=== PATIENT | female | born 1980 | race Caucasian/White ===

== ENCOUNTER 2017-09-16 10:09 | Emergency (ER) | payer OTHER ==
[~2017-09-16 10:09] MED LIST: AUGMENTIN 875875 MG PO; BACTROBAN2% T; CIPRO500 MG PO; CIPROFLOXACIN500 MG PO; COLACE100 MG PO; DARVOCET N 1001 TAB PO; FERROUS SULFATE27 MG PO; FLAGYL500 MG PO; IRON325 M1 PO; LABETALOL300 MG PO; LEXAPRO20 MG PO; MOTRIN800 MG PO; NKHM; PERCOCET 325 MG1 TA2 PO; PNV-SELECT1 TAB PO; PREDNISONE20 M1 PO; PREVACID SOLUTA30 MG PO; SEPTRA DS 800 M1 TAB PO; VICODIN 500 MG-1 TAB PO; ZITHROMAX250 MG PO; ZOFRAN4 MG PO
[2017-09-16] MEDS ORDERED: IBUPROFEN600 MG PO (11:35)
== END 2017-09-16 12:36 | disposition home or self-care (01) ==
LOC: ED 10:09
DX: S93.601A Unspecified sprain of right foot, initial encounter (principal); F17.200 Nicotine dependence, unspecified, uncomplicated; X50.1XXA Overexertion from prolonged static or awkward postures, initial encounter; Y93.89 Activity, other specified; Y92.89 Other specified places as the place of occurrence of the external cause; Y99.8 Other external cause status

== ENCOUNTER 2018-02-07 18:59 | Emergency (ER) | payer OTHER ==
[~2018-02-07] VITALS: Ht 160 cm; Wt 90.7 kg
[~2018-02-07 18:59] MED LIST changes: +IBUPROFEN600 MG PO
[2018-02-07] MEDS ORDERED: LISINOPRIL5 MG PO (19:13)
[2018-02-07] MEDS ORDERED: AMOXICILLIN500 M2 PO (20:06)
[2018-02-07] MEDS ORDERED: Motrin,Rufen800 MG PO (20:06)
== END 2018-02-07 20:46 | disposition home or self-care (01) ==
LOC: ED 18:59
DX: K08.89 Other specified disorders of teeth and supporting structures (principal); R03.0 Elevated blood-pressure reading, without diagnosis of hypertension; F17.200 Nicotine dependence, unspecified, uncomplicated; Z98.890 Other specified postprocedural states; Z79.899 Other long term (current) drug therapy

== ENCOUNTER 2018-05-10 19:15 | Inpatient (IN) | payer SELFPAY ==
[~2018-05-10] VITALS: Ht 160 cm; Wt 88.2 kg
[~2018-05-10 19:15] MED LIST changes: +AMOXICILLIN500 M2 PO; +LISINOPRIL5 MG PO; +Motrin,Rufen800 MG PO
[2018-05-10 19:19] VITALS: BP 193/102
[2018-05-10 20:14] LABS: BASO % 0.2 % (0.0-1.0); EOS # 0.2 10*3/uL (0.0-0.4); EOS % 1.7 % (1.0-4.0); HEMATOCRIT 30.7 % (37.0-47.0); HEMOGLOBIN 9.2 g/dl (12.0-16.0); LYMPH # 1.2 10*3/uL (1.3-4.4); LYMPH % 8.8 % (27.0-41.0); MEAN CELL VOLUME 89.8 fl (81.0-99.0); MEAN CORPUSCULAR HGB 26.9 pg (27.0-31.0); MEAN PLATELET VOLUME 11.3 fl (9.6-12.3); MONO # 0.7 10*3/uL (0.1-1.0); MONO % 5.2 % (3.0-9.0); NEUT # 11.3 10*3/uL (2.3-7.9); NEUT % 83.7 % (47.0-73.0); PLATELET COUNT AUTOMATED 197 10*3/uL (130-400); RED BLOOD COUNT 3.42 10*6/uL (4.10-5.10); RED CELL DISTRI WIDTH 19.6 % (0-14.5); WHITE BLOOD COUNT 13.5 10*3/uL (4.8-10.8)
[2018-05-10 20:20] VITALS: BP 159/96
[2018-05-10 20:30] LABS: ALBUMIN 2.3 gm/dl (3.1-4.5); ALKALINE PHOSPHATASE 216 U/L (45-117); BUN 3 mg/dl (7-24); CHLORIDE 100 mmol/L (98-107); CREATININE 0.66 mg/dL (0.55-1.02); POTASSIUM 2.9 mmol/L (3.5-5.1); SGOT/AST 92 IU/L (3-35); SGPT/ALT 15 U/L (12-78); SODIUM 137 mmol/L (136-145); TOTAL PROTEIN 7.1 gm/dL (6.4-8.2)
[2018-05-10 21:05] VITALS: BP 155/94
[2018-05-10 21:21] LABS: BILIRUBIN NEGATIVE (NEGATIVE); BLOOD NEGATIVE (NEGATIVE); CLARITY CLEAR (CLEAR); COLOR YELLOW (YELLOW); GLUCOSE NEGATIVE (NEGATIVE); KETONE NEGATIVE (NEGATIVE); LEUKO ESTERASE TRACE (NEGATIVE); NITRITE NEGATIVE (NEGATIVE); SPECIFIC GRAVITY <= 1.005 (1.005-1.030); UROBILINOGEN 0.2 E.U./dl (0.2-1.0)
[2018-05-10 21:38] LABS: BACTERIA TRACE
[2018-05-10 22:30] VITALS: BP 154/92
[2018-05-10 23:53] VITALS: BP 163/100
[2018-05-11] VITALS (7 sets, daily range): BP systolic 109–176; BP diastolic 63–108
[2018-05-11 06:04] LABS: BASO % 0.3 % (0.0-1.0); EOS # 0.3 10*3/uL (0.0-0.4); EOS % 2.6 % (1.0-4.0); HEMATOCRIT 31.6 % (37.0-47.0); HEMOGLOBIN 9.4 g/dl (12.0-16.0); LYMPH # 1.8 10*3/uL (1.3-4.4); LYMPH % 16.1 % (27.0-41.0); MEAN CELL VOLUME 91.1 fl (81.0-99.0); MEAN CORPUSCULAR HGB 27.1 pg (27.0-31.0); MEAN CORPUSCULAR HGB CONC 29.7 g/dl (33.0-37.0); MEAN PLATELET VOLUME 11.1 fl (9.6-12.3); MONO # 0.7 10*3/uL (0.1-1.0); MONO % 5.8 % (3.0-9.0); NEUT # 8.5 10*3/uL (2.3-7.9); NEUT % 74.8 % (47.0-73.0); PLATELET COUNT AUTOMATED 201 10*3/uL (130-400); RED BLOOD COUNT 3.47 10*6/uL (4.10-5.10); WHITE BLOOD COUNT 11.3 10*3/uL (4.8-10.8)
[2018-05-11 06:33] LABS: INTERNATIONAL NORM RATIO 1.2 (2.0-3.5)
[2018-05-11 06:34] LABS: ALBUMIN 2.5 gm/dl (3.1-4.5); ALKALINE PHOSPHATASE 189 U/L (45-117); BUN 3 mg/dl (7-24); CHLORIDE 104 mmol/L (98-107); CHOLESTEROL 200 mg/dL (<200); CREATININE 0.57 mg/dL (0.55-1.02); HDL CHOLESTEROL 8 mg/dl (40-60); IRON 64 ug/dL (50-170); LDL CHOLESTEROL 119 mg/dL (9-159); LIPASE 175 U/L (73-393); PHOSPHOROUS 1.8 mg/dL (2.5-4.9); POTASSIUM 3.1 mmol/L (3.5-5.1); SGOT/AST 88 IU/L (3-35); SGPT/ALT 15 U/L (12-78); SODIUM 141 mmol/L (136-145); TOTAL IRON BINDING CAPACITY 224 ug/dl (250-450); TRIGLYCERIDES 363 mg/dl (<150); VLDL CHOLESTEROL 73 mg/dL (6-40)
[2018-05-11 06:43] LABS: FREE T4 1.25 ng/dl (0.76-1.46)
[2018-05-11 08:55] LABS: FERRITIN 37.2 ng/mL (10.0-291.0); VITAMIN D, 25-HYDROXY 16.2 ng/mL (30-100)
[2018-05-12] VITALS: BP 141/70
[2018-05-12 06:57] LABS: BASO % 0.4 % (0.0-1.0); EOS # 0.4 10*3/uL (0.0-0.4); EOS % 3.6 % (1.0-4.0); HEMATOCRIT 30.6 % (37.0-47.0); LYMPH # 2.2 10*3/uL (1.3-4.4); LYMPH % 20.2 % (27.0-41.0); MEAN CELL VOLUME 92.2 fl (81.0-99.0); MEAN CORPUSCULAR HGB 27.1 pg (27.0-31.0); MEAN CORPUSCULAR HGB CONC 29.4 g/dl (33.0-37.0); MONO # 0.8 10*3/uL (0.1-1.0); MONO % 6.8 % (3.0-9.0); NEUT # 7.5 10*3/uL (2.3-7.9); NEUT % 68.4 % (47.0-73.0); PLATELET COUNT AUTOMATED 172 10*3/uL (130-400); RED BLOOD COUNT 3.32 10*6/uL (4.10-5.10); RED CELL DISTRI WIDTH 20.4 % (0-14.5)
[2018-05-12 07:08] LABS: ALBUMIN 2.3 gm/dl (3.1-4.5); ALKALINE PHOSPHATASE 169 U/L (45-117); BUN 4 mg/dl (7-24); CHLORIDE 104 mmol/L (98-107); CREATININE 0.44 mg/dL (0.55-1.02); POTASSIUM 3.6 mmol/L (3.5-5.1); SGOT/AST 119 IU/L (3-35); SGPT/ALT 17 U/L (12-78); SODIUM 137 mmol/L (136-145); TOTAL PROTEIN 6.6 gm/dL (6.4-8.2)
[2018-05-12 08:00] VITALS: BP 138/76
[2018-05-12 12:00] VITALS: BP 152/81
[2018-05-12 16:00] VITALS: BP 170/85
[2018-05-12 20:00] VITALS: BP 177/86
[2018-05-13] VITALS: BP 161/79
[2018-05-13 05:48] VITALS: BP 149/73
[2018-05-13 08:00] VITALS: BP 153/93
[2018-05-13 12:00] VITALS: BP 167/84
[2018-05-13] MEDS ORDERED: VITAMIN D-32000 UNIT PO (12:48)
[2018-05-13] MEDS ORDERED: NATURE'S BLEND F1 MG PO (12:48)
[2018-05-13] MEDS ORDERED: RESTORIL15 MG PO (12:48)
[2018-05-13] MEDS ORDERED: Sinemet 10-100MG PO (12:48)
[2018-05-13] MEDS ORDERED: LISINOPRIL5 MG PO (13:00)
[2018-05-13] MEDS ORDERED: FEOSOL325 MG PO ×2 (13:07)
== END 2018-05-13 14:20 | disposition home or self-care (01) | DRG 304 ==
LOC: ED 19:15 → EDHOLD 05-11 00:11 → 4E 05-11 00:53
PROVIDERS: Emergency Medicine; Internal Medicine
DX: I16.0 Hypertensive urgency (principal); E43 Unspecified severe protein-calorie malnutrition; E87.2 Acidosis; E83.42 Hypomagnesemia; R65.10 Systemic inflammatory response syndrome (SIRS) of non-infectious origin without acute organ dysfunction; E83.39 Other disorders of phosphorus metabolism; K92.1 Melena; E87.6 Hypokalemia; E66.09 Other obesity due to excess calories; R00.0 Tachycardia, unspecified; D50.9 Iron deficiency anemia, unspecified; D72.829 Elevated white blood cell count, unspecified; R74.0 Nonspecific elevation of levels of transaminase and lactic acid dehydrogenase [LDH]; R79.82 Elevated C-reactive protein (CRP); F10.10 Alcohol abuse, uncomplicated; I10 Essential (primary) hypertension; F17.210 Nicotine dependence, cigarettes, uncomplicated; E55.9 Vitamin D deficiency, unspecified; E53.8 Deficiency of other specified B group vitamins; G47.00 Insomnia, unspecified; Z68.34 Body mass index [BMI] 34.0-34.9, adult; Z98.891 History of uterine scar from previous surgery; Z71.6 Tobacco abuse counseling

== ENCOUNTER 2018-12-01 09:36 | Inpatient (IN) | payer SELFPAY ==
[~2018-12-01] VITALS: Ht 160 cm; Wt 80.7 kg
[2018-12-01] VITALS (9 sets, daily range): BP systolic 160–200; BP diastolic 90–121
--- NOTE | ~2018-12-01 | EKG ---
[place], [place] ELECTROCARDIOGRAM REPORT NAME: VITALIY VILLALTA UNIT #: [id number] ROOM: 404 DOCTOR: ESTELLE DRAFT REPORT BIRTHDATE: [birth year] [facility] Test Date: 2018-12-01 Test Time: 10:00:22 Pat Name: VITALIY VILLALTA Department: Room: 404 Gender: F Social Worker: Myriam Ford : 1980 Requested By: ELOY DOUGLASS DNP Order Number: [id number] Reading MD: Sal Contreras MD Measurements Intervals [place] Rate: 103 P: 52 RI: 177 QRS: -9 QRSD: 90 T: 30 QT: 357 QTc: 468 Interpretive Statements Sinus tachycardia Compared to ECG 06/26/2018 12:01:22 Atrial abnormality now present Electronically Signed On 12-02-2018 21:17:56 PST by Sal Contreras MD CM:EKGRPT:ELECTROCARDIOGRAM REPORT 1000 16 ELOY DOUGLASS DNP EPIPHANY DRAFT REPORT ELOY DOUGLASS DNP
--- NOTE | ~2018-12-01 | EKG ---
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
--- NOTE | ~2018-12-01 | EKG ---
[place], [place] ELECTROCARDIOGRAM REPORT NAME: VITALIY VILLALTA UNIT #: [id number] ROOM: 404 DOCTOR: ESTELLE DRAFT REPORT BIRTHDATE: [birth year] [facility] Test Date: 2018-12-01 Test Time: 15:37:44 Pat Name: VITALIY VILLALTA Department: Room: [facility] 2 Gender: F Policy Loan Calculator: Alessia Singleton : 1980 Requested By: SOLEDAD MAZARIEGOS Order Number: [id number] Reading MD: Sal Contreras MD Measurements Intervals [place] Rate: 92 P: 46 VA: 177 QRS: -4 QRSD: 86 T: 33 QT: 372 QTc: 460 Interpretive Statements Sinus rhythm Probable left atrial enlargement No change from earlier ECG this date Electronically Signed On 12-02-2018 21:25:28 PST by Sal Contreras MD CM:EKGRPT:ELECTROCARDIOGRAM REPORT 1537 24 SOLEDAD PEREZ DRAFT REPORT SOLEDAD MAZARIEGOS DO
[~2018-12-01 09:36] MED LIST changes: +FEOSOL325 MG PO; +NATURE'S BLEND F1 MG PO; +RESTORIL15 MG PO; +Sinemet 10-100MG PO; +VITAMIN D-32000 UNIT PO
[2018-12-01 09:58] LABS: BASO % 0.3 % (0.0-1.0); EOS # 0.5 10*3/uL (0.0-0.4); EOS % 4.9 % (1.0-4.0); HEMATOCRIT 34.4 % (37.0-47.0); HEMOGLOBIN 10.5 g/dl (12.0-16.0); LYMPH % 18.3 % (27.0-41.0); MEAN CELL VOLUME 89.1 fl (81.0-99.0); MEAN CORPUSCULAR HGB 27.2 pg (27.0-31.0); MEAN CORPUSCULAR HGB CONC 30.5 g/dl (33.0-37.0); MONO # 0.7 10*3/uL (0.1-1.0); MONO % 6.1 % (3.0-9.0); NEUT # 7.6 10*3/uL (2.3-7.9); PLATELET COUNT AUTOMATED 146 10*3/uL (130-400); RED BLOOD COUNT 3.86 10*6/uL (4.10-5.10); WHITE BLOOD COUNT 10.9 10*3/uL (4.8-10.8)
--- NOTE | 2018-12-01 10:06 | NUR ---
JOHN 2.Jose DOUGLASS MADE AWARE.
[2018-12-01 10:12] LABS: BILIRUBIN 1+ (NEGATIVE); BLOOD 3+ (NEGATIVE); CLARITY CLOUDY (CLEAR); COLOR YELLOW (YELLOW); GLUCOSE NEGATIVE (NEGATIVE); KETONE NEGATIVE (NEGATIVE); LEUKO ESTERASE TRACE (NEGATIVE); NITRITE NEGATIVE (NEGATIVE); UROBILINOGEN 0.2 E.U./dl (0.2-1.0)
[2018-12-01 10:14] LABS: ACT PARTIAL THROMBO TIME 25.5 SECONDS (20.8-31.5); ALBUMIN 3.5 gm/dl (3.1-4.5); ALKALINE PHOSPHATASE 230 U/L (45-117); BUN 4 mg/dl (7-24); CHLORIDE 101 mmol/L (98-107); CREATININE 0.65 mg/dL (0.55-1.02); INTERNATIONAL NORM RATIO 1.3 (2.0-3.5); LIPASE 174 U/L (73-393); POTASSIUM 3.3 mmol/L (3.5-5.1); SGOT/AST 96 IU/L (3-35); SGPT/ALT 24 U/L (12-78); SODIUM 138 mmol/L (136-145); TOTAL PROTEIN 9.2 gm/dL (6.4-8.2)
[2018-12-01 10:18] LABS: TROPONIN I < 0.015 ng/ml (<0.045)
[2018-12-01 10:23] LABS: RBC TNTC rbc/hpf (0-2)
[2018-12-01 10:25] LABS: BACTERIA 1+
--- NOTE | 2018-12-01 11:00 | NUR ---
A 38, admitted to , under the services of HIPOLITO Pepper DO with a diagnosis of NEAR SYCOPE. Chief complaint is NEAR SYNCOPE. Patient arrived via wheel chair from ER. Monitor applied. Initial assessment completed. Vital signs taken and recorded. HIPOLITO PEPPER DO notified of admission to the unit. Orders received. See assessment for past medical history, medications and allergies. Patient and/or family oriented to unit. [facility] ICCU visitation policy reviewed. Clothing/patient valuable form completed. ISABEL IVEY
--- NOTE | 2018-12-01 11:25 | NUR ---
DR. MAZARIEGOS CALLED AND MADE AWARE OF PATIENT RECIEVED ON FLOOR FROM ER. PATIENT STATES SHE IS SUPPOSED TO TAKE LISINOPRIL AT HOME, HOWEVER, SHE HAS BEEN OUT FOR A COUPLE WEEKS. STATES SHE DOES NOT HAVE A PRIMARY CARE PHYSICAN AND SHE HAS BEEN RECIEVING PRESCRIPTIONS FROM HER [facility] DOCTOR.
--- NOTE | 2018-12-01 11:33 | NUR ---
DR. MAZARIEGOS CALLED AND UPDATED OF PATIENTS MANUAL BLOOD PRESSURE BEING 176/90. NO NEW ORDERS RECIEVED AT THIS TIME.
--- NOTE | 2018-12-01 12:10 | NUR ---
ORTHOS NEGATIVE AT THIS TIME. SEE INTERVENTION.
[2018-12-01 13:18] LABS: GAMMA GLUTAMYL TRANSPEPTIDASE 274 U/L (5-55)
--- NOTE | 2018-12-01 13:18 | NUR ---
DR. MAZARIEGOS CALLED AT THIS TIME CONCERNING PATIENTS BLOOD PRESSURE OF 178/96 MANUALLY. STATED THEY ARE COMING UP TO SEE PATIENT AT THIS TIME.
[2018-12-01 13:19] LABS: TROPONIN I < 0.015 ng/ml (<0.045)
--- NOTE | 2018-12-01 18:27 | NUR ---
SPOKE WITH DR. MAZARIEGOS AT THIS TIME CONCERNING PATIENTS BLOOD PRESSURE BEING 178/98. ALSO MADE AWARE OF RESULTS OF CTA CHEST AT THIS TIME. ORDERED 1MG/KG OF LOVENOX BID. ALSO ORDERED 1MG IV ATIVAN AT THIS TIME. ORDERED TO CHECK BLOOD PRESSURE MANUALLY IN ONE HOUR FROM DOSE OF ATIVAN GIVEN.
--- NOTE | 2018-12-01 19:59 | NUR ---
1939 BP CHECK 1 HOUR AFTER IV ATIVAN IS 160/90 MANUALLY. WILL CONT TO MONITOR.
--- NOTE | 2018-12-01 20:19 | NUR ---
2000 MVI IV BAG INFUSED. HEP LOCK INTACT. UP TO BR. GAIT STEADY. NO TREMORS NOTED. IV FLUIDS CONT. ALERT AND PLEASANT. C/O FREQUENT, WATERY STOOLS. WILL MONITOR.
--- NOTE | 2018-12-01 20:53 | NUR ---
DR. LIN CALLED REGARGDING PT LOOSE STOOLS AND UPDATED ON PT RECENT BP/ ORDERS RECEIVED.
--- NOTE | 2018-12-01 21:28 | NUR ---
2100 PT AWARE OF NEED FOR STOOL SPECIMEN. ROUTINE ATIVAN PO GIVEN ORDERED.
--- NOTE | 2018-12-01 21:48 | NUR ---
STOOL SPECIMEN FOR CDIF SENT TO LAB.
--- NOTE | 2018-12-01 22:08 | NUR ---
RESTING IN BED WITH EYES CLOSED. APPEARS TO BE SLEEPING. CONDITION GUARDED.
--- NOTE | 2018-12-01 22:16 | NUR ---
PT MEDICATED W/VISTARIL FOR C/O INSOMNIA/ANXIETY. PT RESTING QUIETLY IN BED W/LIGHTS OFF AT THIS TIME. C/O DIARRHEA. WILL MONITOR.
--- NOTE | 2018-12-01 23:00 | NUR ---
ASSUMED CARE FOR THIS PT AT THIS TIME. NO C/O VOICED AT PRESENT. CALL LIGHT IN REACH.
--- NOTE | 2018-12-01 23:07 | NUR ---
DR. Melissa LIN NOTIFIED OF PT'S ELEVATED LIVER ENZYMES. T.O. RCVD FOR ACUTE HEP PANEL IN AM.
[2018-12-02] VITALS: BP 148/85
[2018-12-02 06:15] LABS: BASO % 0.3 % (0.0-1.0); EOS # 0.5 10*3/uL (0.0-0.4); EOS % 6.3 % (1.0-4.0); HEMOGLOBIN 9.1 g/dl (12.0-16.0); LYMPH # 2.1 10*3/uL (1.3-4.4); MEAN CELL VOLUME 91.7 fl (81.0-99.0); MEAN CORPUSCULAR HGB 27.8 pg (27.0-31.0); MEAN CORPUSCULAR HGB CONC 30.3 g/dl (33.0-37.0); MEAN PLATELET VOLUME 10.7 fl (9.6-12.3); MONO # 0.5 10*3/uL (0.1-1.0); MONO % 6.4 % (3.0-9.0); NEUT # 4.7 10*3/uL (2.3-7.9); NEUT % 59.7 % (47.0-73.0); PLATELET COUNT AUTOMATED 108 10*3/uL (130-400); RED BLOOD COUNT 3.27 10*6/uL (4.10-5.10); RED CELL DISTRI WIDTH 15.7 % (0-14.5); WHITE BLOOD COUNT 7.9 10*3/uL (4.8-10.8)
[2018-12-02 06:31] LABS: ACT PARTIAL THROMBO TIME 29.1 SECONDS (20.8-31.5); INTERNATIONAL NORM RATIO 1.3 (2.0-3.5)
[2018-12-02 06:36] LABS: ALBUMIN 2.7 gm/dl (3.1-4.5); ALKALINE PHOSPHATASE 184 U/L (45-117); BUN 6 mg/dl (7-24); CHLORIDE 105 mmol/L (98-107); CHOLESTEROL 211 mg/dL (<200); CREATININE 0.49 mg/dL (0.55-1.02); FREE T4 0.98 ng/dl (0.76-1.46); HDL CHOLESTEROL 15 mg/dl (40-60); LDL CHOLESTEROL 138 mg/dL (9-159); PHOSPHOROUS 2.2 mg/dL (2.5-4.9); POTASSIUM 3.3 mmol/L (3.5-5.1); SGOT/AST 67 IU/L (3-35); SGPT/ALT 20 U/L (12-78); SODIUM 139 mmol/L (136-145); TOTAL PROTEIN 7.6 gm/dL (6.4-8.2); TRIGLYCERIDES 290 mg/dl (<150); VLDL CHOLESTEROL 58 mg/dL (6-40)
[2018-12-02 08:00] VITALS: BP 160/86
--- NOTE | 2018-12-02 09:00 | NUR ---
Rip Saw Operator in to talk to patient. Patient states lives at home with and children. There are few steps in the home. Physician: [facility] Home health services: none Patient's level of ADLs: INDEPENDENT Patient has working utilities: all working DME: none Follow-up physician's appointment after d/c: will be made by hospitalist nurse director upon discharge Does patient want to access PORTAL?: no Discharge plan discussed with patient, patient lives at home with and children, she states she is independent in adls and ambulation, patient states she will be going home when able and denies any home needs, discussed with her not having any insurance, patient stated that she had cares[employer] insurance, but has been dealing with them due to her and her not showing up on the insurance policy, educated patient that Joyce from [employer] will see her and try and find out why she is not showing up on the policy, patient denies any other needs at this time. MONIQUE RODRIGUEZ
[2018-12-02 12:00] VITALS: BP 157/88
[2018-12-02 16:00] VITALS: BP 151/96
--- NOTE | 2018-12-02 19:00 | NUR ---
PT AWAKE IN BED DURING BEDSIDE SHIFT. PT CONTINUES TO C/O DIARRHEA. WILL NOTIFY .
[2018-12-02 20:00] VITALS: BP 152/94
--- NOTE | 2018-12-02 20:15 | NUR ---
DR. SHEPARD NOTIFIED OF PT CONTINUES TO HAVE DIARRHEA. TO ORDER IMMODIUM. AND BP REMAINS ELEVATED W/MANUAL OF 152/98. CONTINUE TO MONITOR BP TONIGHT.
--- NOTE | 2018-12-02 21:06 | NUR ---
PT MEDICATED W/VISTARIL PER PT REQUEST AND ONE TIME DOSE OF IMMODIUM FOR C/O DIARRHEA. WILL MONITOR FOR EFFECTIVENESS. CALL LIGHT IN REACH.
[2018-12-03] VITALS: BP 142/85
[2018-12-03 07:10] LABS: HEPATITIS B SURFACE AG Negative (Negative); HEPATITIS C VIRUS ANTIBODY 0.2 s/co (0.0-0.9)
[2018-12-03 08:00] VITALS: BP 138/78
--- NOTE | 2018-12-03 09:00 | NUR ---
case management visits with patient, patient stated that Joyce from [employer] spoke to her and her yesterday. is to bring in financial statements to see if they qualify for the low income help. patient denies any home needs at this time
[2018-12-03] MEDS ORDERED: XARELTO1 EACH PO (10:37)
[2018-12-03] MEDS ORDERED: XARELTO20 M1 PO (10:39)
[2018-12-03] MEDS ORDERED: DICYCLOMINE HCL20 MG PO (10:42)
[2018-12-03] MEDS ORDERED: NATURE'S BLEND F1 MG PO (10:42)
[2018-12-03] MEDS ORDERED: ATARAX,VISTARIL50 MG PO (10:42)
[2018-12-03] MEDS ORDERED: LISINOPRIL10 M1 PO (10:42)
[2018-12-03] MEDS ORDERED: NATURE'S BLEND100 M2 PO (10:42)
[2018-12-03 12:00] VITALS: BP 144/92
--- NOTE | 2018-12-03 13:23 | NUR ---
Discharge instructions reviewed with patient/family. Patient receptive and verbalizes understanding. Follow-up care arranged. Written instructions given to patient/family. WENT OVER DISCHARGE PACKET WITH PATIENT. IV REMOVED, PATIENT TOLERATED WELL. PATIENT AWARE OF PRESCRIPTIONS TO BE PICKED UP IN PHARMACY BEFORE SHE LEAVES. HEART MONITOR REMOVED AND PLACED IN NURSES STATION. PATIENT DENIES THE NEED FOR A WHEELCHAIR. PATIENT DENIES ANY NEEDS OR CONCERNS AT THIS TIME. ELIDA HIRSCH E
[2018-12-13] MEDS ORDERED: VITAMIN D-32000 UNI1 PO (14:07)
[2018-12-17] MEDS ORDERED: DICYCLOMINE HCL20 MG PO (09:13)
[2018-12-17] MEDS ORDERED: METHOCARBAMOL750 M1 PO (09:13)
[2018-12-17] MEDS ORDERED: NICODERM T (09:13)
[2018-12-17] MEDS ORDERED: DEEP SEA44 ML NAS (09:13)
[2018-12-17] MEDS ORDERED: ATARAX,VISTARIL50 MG PO (09:13)
[2018-12-17] MEDS ORDERED: ZOFRAN 4 MG ED2 TAB PO (09:13)
[2018-12-17] MEDS ORDERED: XARELTO20 M1 PO (09:17)
== END 2018-12-03 13:23 | disposition home or self-care (01) | DRG 176 ==
LOC: ED 09:36 → 4E 10:28 → EDHOLD 10:28 → 4E 11:06
PROVIDERS: Internal Medicine; Nurse Practitioner Family; ADMIT Emergency Medicine
DX: I26.99 Other pulmonary embolism without acute cor pulmonale (principal); E87.2 Acidosis; I16.1 Hypertensive emergency; F10.239 Alcohol dependence with withdrawal, unspecified; D68.9 Coagulation defect, unspecified; F17.210 Nicotine dependence, cigarettes, uncomplicated; E87.6 Hypokalemia; E83.42 Hypomagnesemia; E78.5 Hyperlipidemia, unspecified; E86.0 Dehydration; R82.71 Bacteriuria; Z71.6 Tobacco abuse counseling; R74.0 Nonspecific elevation of levels of transaminase and lactic acid dehydrogenase [LDH]; D64.9 Anemia, unspecified; E66.09 Other obesity due to excess calories; Z68.31 Body mass index [BMI] 31.0-31.9, adult; Z90.49 Acquired absence of other specified parts of digestive tract; Z98.891 History of uterine scar from previous surgery; Z72.89 Other problems related to lifestyle; Z82.49 Family history of ischemic heart disease and other diseases of the circulatory system; Z83.438 Family history of other disorder of lipoprotein metabolism and other lipidemia; Z71.41 Alcohol abuse counseling and surveillance of alcoholic

== ENCOUNTER 2019-09-20 15:06 | Inpatient (IN) | payer OTHER ==
[~2019-09-20] VITALS: Ht 160 cm; Wt 79.4 kg
--- NOTE | ~2019-09-20 | EKG ---
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: : 1980 Requested By: NADER MEJIA PA-C Order Number: [id number] Reading MD: Vanessa Vitale MD Measurements Intervals [place] Rate: 116 P: 15 ID: 142 QRS: -4 QRSD: 98 T: 21 QT: 361 QTc: 502 Interpretive Statements Sinus tachycardia Anteroseptal infarct, old Minimal ST depression, lateral leads Compared to ECG 06/17/2019 19:53:16 Myocardial infarct finding now present ST (T wave) deviation now present Sinus rhythm no longer present T-wave abnormality no longer present Prolonged QT interval no longer present Electronically Signed On 09-21-2019 8:50:02 PST by Vanessa Vitale MD CM:EKGRPT:ELECTROCARDIOGRAM REPORT 1530 0850 NADER JEFFRIESANY DRAFT REPORT NADER MEJIA PA-C
[~2019-09-20 15:06] MED LIST changes: +ATARAX,VISTARIL50 MG PO; +DEEP SEA44 ML NAS; +DICYCLOMINE HCL20 MG PO; +LISINOPRIL10 M1 PO; +METHOCARBAMOL750 M1 PO; +NATURE'S BLEND100 M2 PO; +NICODERM T; +VITAMIN D-32000 UNI1 PO; +XARELTO1 EACH PO; +XARELTO20 M1 PO; +ZOFRAN 4 MG ED2 TAB PO
[2019-09-20 15:08] VITALS: BP 162/90
[2019-09-20 15:37] LABS: BASO % 0.2 % (0.0-1.0); EOS # 0.1 10*3/uL (0.0-0.4); EOS % 0.3 % (1.0-4.0); HEMATOCRIT 33.8 % (37.0-47.0); HEMOGLOBIN 10.6 g/dl (12.0-16.0); LYMPH # 1.3 10*3/uL (1.3-4.4); MEAN CELL VOLUME 90.6 fl (81.0-99.0); MEAN CORPUSCULAR HGB 28.4 pg (27.0-31.0); MEAN CORPUSCULAR HGB CONC 31.4 g/dl (33.0-37.0); MEAN PLATELET VOLUME 11.4 fl (9.6-12.3); MONO # 1.1 10*3/uL (0.1-1.0); MONO % 6.1 % (3.0-9.0); NEUT # 15.6 10*3/uL (2.3-7.9); NEUT % 85.9 % (47.0-73.0); PLATELET COUNT AUTOMATED 184 10*3/uL (130-400); RED BLOOD COUNT 3.73 10*6/uL (4.10-5.10); RED CELL DISTRI WIDTH 22.7 % (0-14.5); WHITE BLOOD COUNT 18.2 10*3/uL (4.8-10.8)
[2019-09-20 15:50] LABS: INTERNATIONAL NORM RATIO 1.8 (2.0-3.5)
[2019-09-20 15:54] LABS: ACETAMINOPHEN (TYLENOL) < 5.0 ug/ml (10-30); ALBUMIN 2.4 gm/dl (3.1-4.5); ALKALINE PHOSPHATASE 367 U/L (45-117); B-hCG (QUALITATIVE) NEGATIVE (NEGATIVE); BUN 3 mg/dl (7-24); CHLORIDE 89 mmol/L (98-107); CREATININE 0.78 mg/dL (0.55-1.02); ETHYL ALCOHOL < 3.0 mg/dl (<3); LIPASE 209 U/L (73-393); POTASSIUM 3.3 mmol/L (3.5-5.1); SGOT/AST 200 IU/L (3-35); SGPT/ALT 18 U/L (12-78); SODIUM 126 mmol/L (136-145); TOTAL PROTEIN 8.4 gm/dL (6.4-8.2); TROPONIN I < 0.015 ng/ml (<0.045)
--- NOTE | 2019-09-20 17:48 | NUR ---
PT RESTING IN BED. SIDERAILS UP X2. IN NO ACUTE DISTRESS
[2019-09-20 17:50] VITALS: BP 131/84
[2019-09-20 18:00] VITALS: BP 142/92
--- NOTE | 2019-09-20 18:35 | NUR ---
A 39, admitted to 5E, under the services of KYLIE Barnes DO with a diagnosis of ETOH WITHDRAWAL Chief complaint is ASCITES. Patient arrived via from ER. Monitor applied. Initial assessment completed. Vital signs taken and recorded. KYLIE BARNES DO notified of admission to the unit. Orders received. See assessment for past medical history, medications and allergies. Patient and/or family oriented to unit. [facility] visitation policy reviewed. Clothing/patient valuable form completed. GILES SPICER
--- NOTE | 2019-09-20 19:05 | NUR ---
PT TRANSPORTED TO ICU VIA BED. REPORTED GIVEN TO RAJIV PEPE
[2019-09-20 19:09] VITALS: BP 138/94
--- NOTE | 2019-09-20 19:45 | NUR ---
1905 RECEIVED IN ICCU #7 VIA BED WITH BELONGINGS. PT IS ALERT AND PLEASANT. DR. EASON HERE TO SEE PT. MVI BAG INFUSING WELL RUPERT. NO TREMORS, DIAPHORESIS OR CONFUSION NOTED AT PRESENT. SCD'S APPLIED TO BILATERAL LOWER EXTREMITES. ABD VERY DISTENDED WITH ACTIVE PERISTALSIS NOTED. PT HAS DIFFICULTY MOVING ABOUTT IN THE BED DUE TO THIS. 1927 BEEPED FOR CONSULT. [address] DR[address] LORD ANSWERED. NO NEW ORDERS RECEIVED. WAS MADE AWARE OF PT ADMISSION WHEN PT WAS IN THE ER. 1944 ROUTINE ATIVAN PO GIVEN PER ORDER. WILL MONITOR. PT RESTING IN BED WITH EYES CLOSED.
[2019-09-20 20:00] VITALS: BP 138/94
--- NOTE | 2019-09-20 20:44 | NUR ---
2030 UP TO BSC TO VOID. URINE IS DARK MOON. ALL URINE SPECIMENS AND STOOL SPEICMEN AND ASC OBTAINED. 204 MEDICATED WITH BENTYL FOR ABD CRAMPING AND MOTRIN FOR ABD DISCOMFORT. WILL MONITOR. EARLIER ATIVAN SL EFFECTIVE. RESTING IN BED WATCHING TV.
[2019-09-20 20:48] LABS: BILIRUBIN 2+ (NEGATIVE); BLOOD NEGATIVE (NEGATIVE); CLARITY SL CLOUDY (CLEAR); COLOR YELLOW (YELLOW); GLUCOSE NEGATIVE (NEGATIVE); KETONE NEGATIVE (NEGATIVE); LEUKO ESTERASE NEGATIVE (NEGATIVE); NITRITE NEGATIVE (NEGATIVE); SPECIFIC GRAVITY <= 1.005 (1.005-1.030)
[2019-09-20 20:56] LABS: URINE AMPHETAMINES < 1000 (1000ng/ml); URINE BARBITURATES < 200 (200ng/ml); URINE BENZODIAZEPINES < 200 (200ng/ml); URINE CANNABINOIDS (THC) < 50 (50ng/ml); URINE COCAINE < 300 (300ng/ml); URINE METHADONE < 300 (300ng/ml); URINE OPIATES < 300 (300ng/ml)
[2019-09-20 20:57] LABS: RBC 0-2 rbc/hpf (0-2)
[2019-09-20 20:58] LABS: BACTERIA TRACE; URINE PHENCYCLIDINE < 25 (25ng/ml)
--- NOTE | 2019-09-20 21:34 | NUR ---
EARLIER MEDS EFFECTIVE FOR SL RELIEF OF ABD PAIN. RESTING IN BED EATING CHICKEN BROTH AND DRINKING APPLE JUICE. VISTARIL GIVEN FOR ANXIETY/ SLEEP. WILL MONITOR.
[2019-09-20 22:16] LABS: BUN 2 mg/dl (7-24); CHLORIDE 92 mmol/L (98-107); CREATININE 0.76 mg/dL (0.55-1.02); SODIUM 128 mmol/L (136-145)
--- NOTE | 2019-09-20 22:21 | NUR ---
EARLIER VISTARIL EFFECTIVE. RESTING IN BED WITH EYES CLOSED. APPEARS TO BE SLEEPING. TOLERATED LIQUIDS EARLIER. NO N/V NOTED.
--- NOTE | 2019-09-20 22:41 | NUR ---
DR. EASON CALLED WITH 2200 BMP RESULTS. ORDERS RECEIVED.
[2019-09-21] VITALS: BP 130/86
--- NOTE | 2019-09-21 00:13 | NUR ---
ATIVAN GIVEN AT 2330 EFFECTIVE. RESTING IN BED WITH EYES CLOSED. APPEARS TO BE SLEEPING. NO DISTRESS NOTED.
--- NOTE | 2019-09-21 01:11 | NUR ---
0110 ATIVAN 1MG IV GIVEN FOR C/O'S ANXIETY AND FEELING "JITTERY". WILL MONITOR.
--- NOTE | 2019-09-21 02:05 | NUR ---
EARLIER IV ATIVAN EFFECTIVE. RESTING IN BED WITH EYES CLOSED.
--- NOTE | 2019-09-21 03:36 | NUR ---
ROUTINE ATIVAN PO GIVEN ORDERED. WILL MONITOR.
[2019-09-21 04:00] VITALS: BP 105/63
--- NOTE | 2019-09-21 04:06 | NUR ---
SLEEPING AT INTERVALS. NO DISTRESS NOTED.
--- NOTE | 2019-09-21 06:15 | NUR ---
REMAINS WIHTOUT DISTRESS. IV FLUIDS CONT. ALERT AND COOPERATIVE. CONDITION GUARDED,
[2019-09-21 06:53] LABS: BASO % 0.3 % (0.0-1.0); EOS # 0.3 10*3/uL (0.0-0.4); EOS % 2.8 % (1.0-4.0); HEMOGLOBIN 8.9 g/dl (12.0-16.0); LYMPH # 1.9 10*3/uL (1.3-4.4); LYMPH % 16.2 % (27.0-41.0); MEAN CELL VOLUME 92.7 fl (81.0-99.0); MEAN CORPUSCULAR HGB 28.4 pg (27.0-31.0); MEAN CORPUSCULAR HGB CONC 30.7 g/dl (33.0-37.0); MEAN PLATELET VOLUME 11.2 fl (9.6-12.3); MONO # 0.8 10*3/uL (0.1-1.0); MONO % 7.2 % (3.0-9.0); NEUT # 8.5 10*3/uL (2.3-7.9); PLATELET COUNT AUTOMATED 136 10*3/uL (130-400); RED BLOOD COUNT 3.13 10*6/uL (4.10-5.10); WHITE BLOOD COUNT 11.6 10*3/uL (4.8-10.8)
[2019-09-21 07:07] LABS: BUN 3 mg/dl (7-24); CHLORIDE 93 mmol/L (98-107); POTASSIUM 2.9 mmol/L (3.5-5.1); SODIUM 130 mmol/L (136-145)
[2019-09-21 07:14] LABS: PHOSPHOROUS 0.8 mg/dL (2.5-4.9)
[2019-09-21 08:00] VITALS: BP 123/80
--- NOTE | 2019-09-21 08:00 | NUR ---
RESTING IN BED. SHORT OF BREATH WITH ANY EXERTION. PULSE OX 96% ON ROOM AIR. LUNGS CLEAR BILATERALLY. VITALS STABLE. LUNGS CLEAR BILATERALLY. NO PERIPHERAL EDEMA NOTED.
--- NOTE | 2019-09-21 09:00 | NUR ---
MESSAGE LEFT WITH DR. DURANT REGARDING CONSULT
--- NOTE | 2019-09-21 09:20 | NUR ---
DR. LLOYD NOTIFIED OF CONSULT. TO REMAIN NPO AFTER MIDNIGHT FOR EGD IN AM. ALSO TOLD TO CALL HIM IN AM AFTER PARACENTESIS HAS BEEN DONE WITH AMOUNT FLUID REMOVED
--- NOTE | 2019-09-21 10:02 | NUR ---
MEDICATED WITH 2 TYLENOL AND BENTYL ORDERED FOR COMPLAINTS OF ABDOMINAL PAIN AND ABDOMINAL CRAMPS.
--- NOTE | 2019-09-21 10:45 | NUR ---
VOICES THAT TYLENOL AND BENTYL WERE EFFECTIVE.
[2019-09-21 12:00] VITALS: BP 144/72
--- NOTE | 2019-09-21 13:19 | NUR ---
Medicated with IV Ativan, PO Robaxin & PO Vistaril for increasing restlessness where she is disconnecting her lines, pacing the floor, & becoming more forgetful at times. Per the patient she is going to take the trash down the addison & when explained that house keeping does that she giggled & said "[place] must be nice."
--- NOTE | 2019-09-21 13:53 | NUR ---
Patient displaying withdrawal symptoms, including: irritability, anxiousness, restlessness and agitation, complicated by impulsive behavior. Patient scores a 13 on the CIWA/COWA scale. Scheduled/PRN medications provided, doctor notified of patient's agitation and AMA potential. Will continue to monitor medication effectiveness.
--- NOTE | 2019-09-21 13:55 | NUR ---
DR. JOSEPH MADE AWARE OF INCREASED AGITATION, RESTLESSNESS, AND SOME PERIODS OF CONFUSION.
--- NOTE | 2019-09-21 14:41 | NUR ---
DR. LORD HERE TO SEE PATIENT.
--- NOTE | 2019-09-21 15:30 | NUR ---
Over to bedside with present. Nurse asked for her to sign consent for EGD and Paracentesis. She refused until she sees the doctors. She asked to go outside to smoke. She was told she could not. She states "you are manipulating this whole situation." Dr. Flower here to see patient. She states that the month is September and the year is 2019. She is in [facility]. Very agitated and restless. Code Kasia called. Iv Ativan pulled and patient refuses for nurse to administer and states "you cannot hold me against my will." I know that I am not thinking right, I havent been since second dose of that medicine was given today. Dr Schaefer here to do paracentesis at bedside. I will not have this until i have a cigarette. Smoking patch already on and nicotine inhaler offered and refused. She states " I will go and have a cigarette and then come back to ER." IV's removed from left arm. Discharged to care of .
== END 2019-09-21 17:56 | disposition left against medical advice (07) | DRG 720 ==
LOC: ED 15:06 → EDHOLD 17:32 → ICCU 17:32 → 5E 18:05 → ICCU 18:58
PROVIDERS: Internal Medicine; Physician Assistant; ADMIT Internal Medicine
DX: A41.9 Sepsis, unspecified organism (principal); K65.2 Spontaneous bacterial peritonitis; K70.31 Alcoholic cirrhosis of liver with ascites; E87.6 Hypokalemia; R73.9 Hyperglycemia, unspecified; E87.1 Hypo-osmolality and hyponatremia; F17.210 Nicotine dependence, cigarettes, uncomplicated; E87.8 Other disorders of electrolyte and fluid balance, not elsewhere classified; E83.42 Hypomagnesemia; R74.0 Nonspecific elevation of levels of transaminase and lactic acid dehydrogenase [LDH]; F10.10 Alcohol abuse, uncomplicated; R19.5 Other fecal abnormalities; I10 Essential (primary) hypertension; D68.59 Other primary thrombophilia; D64.9 Anemia, unspecified; Z53.29 Procedure and treatment not carried out because of patient's decision for other reasons; E83.39 Other disorders of phosphorus metabolism; R65.20 Severe sepsis without septic shock; R16.1 Splenomegaly, not elsewhere classified; K76.0 Fatty (change of) liver, not elsewhere classified; E66.9 Obesity, unspecified; E43 Unspecified severe protein-calorie malnutrition; Z71.6 Tobacco abuse counseling; Z90.49 Acquired absence of other specified parts of digestive tract; Z98.891 History of uterine scar from previous surgery; Z82.49 Family history of ischemic heart disease and other diseases of the circulatory system; Z86.711 Personal history of pulmonary embolism; Z83.438 Family history of other disorder of lipoprotein metabolism and other lipidemia; Z68.31 Body mass index [BMI] 31.0-31.9, adult

== ENCOUNTER 2019-09-21 16:06 | Emergency (ER) | payer OTHER ==
[~2019-09-21] VITALS: Ht 160 cm; Wt 81.6 kg
[2019-09-21 17:44] LABS: BASO % 0.2 % (0.0-1.0); EOS # 0.3 10*3/uL (0.0-0.4); EOS % 2.6 % (1.0-4.0); HEMATOCRIT 30.8 % (37.0-47.0); HEMOGLOBIN 9.4 g/dl (12.0-16.0); LYMPH # 1.9 10*3/uL (1.3-4.4); LYMPH % 14.8 % (27.0-41.0); MEAN CELL VOLUME 94.2 fl (81.0-99.0); MEAN CORPUSCULAR HGB 28.7 pg (27.0-31.0); MEAN CORPUSCULAR HGB CONC 30.5 g/dl (33.0-37.0); MEAN PLATELET VOLUME 11.4 fl (9.6-12.3); MONO # 0.8 10*3/uL (0.1-1.0); NEUT # 9.8 10*3/uL (2.3-7.9); NEUT % 75.9 % (47.0-73.0); PLATELET COUNT AUTOMATED 147 10*3/uL (130-400); RED BLOOD COUNT 3.27 10*6/uL (4.10-5.10); RED CELL DISTRI WIDTH 23.4 % (0-14.5); WHITE BLOOD COUNT 12.9 10*3/uL (4.8-10.8)
[2019-09-21 17:55] LABS: BUN 4 mg/dl (7-24); CHLORIDE 95 mmol/L (98-107); CREATININE 0.75 mg/dL (0.55-1.02); POTASSIUM 3.2 mmol/L (3.5-5.1); SODIUM 131 mmol/L (136-145)
[2019-09-21 17:56] LABS: ACT PARTIAL THROMBO TIME 28.3 SECONDS (20.0-32.1); INTERNATIONAL NORM RATIO 1.9 (2.0-3.5)
[2019-09-21 19:50] LABS: BODY FLUID WBC 230 /uL
[2019-09-21 20:45] LABS: BF LYMPHOCYTES 60 %; BF MACROPHAGES 10 %; BF MESOTHELIALS 5 %; BF NEUTROPHILS 24 %
== END 2019-09-21 19:30 | disposition left against medical advice (07) ==
LOC: ED 16:06
PROVIDERS: Emergency Medicine
DX: K70.9 Alcoholic liver disease, unspecified (principal); F10.239 Alcohol dependence with withdrawal, unspecified; R18.8 Other ascites; E87.1 Hypo-osmolality and hyponatremia; I10 Essential (primary) hypertension; E66.9 Obesity, unspecified; F17.210 Nicotine dependence, cigarettes, uncomplicated; Y90.9 Presence of alcohol in blood, level not specified